=== PATIENT | female | born 1970 | race Caucasian/White ===

== ENCOUNTER 2016-12-02 05:32 | Day surgery (SDC) | payer MEDICAID ==
[2016-12-01 10:37] LABS: HEMATOCRIT 41.5 % (36.0-48.0); MCH 31.6 pg (26.0-34.0); MCHC 33.7 g/dL (31.0-37.0); MCV 93.7 fL (80.0-100.0); MEAN PLATELET VOLUME 9.6 fL (7.4-10.4); RBC 4.43 10x6/uL (4.00-5.40); RDW 12.6 % (11.5-14.5); WBC 6.3 10x3/uL (4.8-10.8)
[2016-12-01 11:06] LABS: CALC OSMOLALITY 276 mosm/kg (275-300); CALCIUM 8.6 mg/dL (8.5-10.1); CARBON DIOXIDE 26.4 mmol/L (21.0-32.0); CHLORIDE - SERUM 104 mmol/L (98-107); CREATININE - SERUM 0.7 mg/dL (0.6-1.3); GLUCOSE 90 mg/dL (74-106); POTASSIUM - SERUM 3.9 mmol/L (3.5-5.1); SODIUM 139 mmol/L (136-145); UREA NITROGEN 10 mg/dL (7-18); eGFR NON AFRICAN AMERICAN > 90 mL/min (90-120)
[~2016-12-02] VITALS: Ht 175.3 cm; Wt 74.8 kg
--- NOTE | ~2016-12-02 | OP ---
PATIENT NAME: HENNA POLANCO MEDICAL RECORD: [id number] :74 LOCATION:D[facility] ADMISSION DATE: SURGEON: JUAN MANUEL BISHOP OPERATION DATE: 12/02/16 DATE OF OPERATION: 12/02/2016 SURGEON: Juan Manuel Bishop DPM. PREOPERATIVE DIAGNOSES: 1. Tailor's bunion, left foot. 2. Neuroma, second intermetatarsal space, right foot. POSTOPERATIVE DIAGNOSES: 1. Tailor's bunion, left foot. 2. Neuroma, second intermetatarsal space, right foot. PROCEDURES: 1. Tailor's bunionectomy (reverse Richard), left foot. 2. Excision of neuroma, second intermetatarsal space, right foot. ANESTHESIA: LMA. HEMOSTASIS: Pneumatic ankle tourniquet on the left lower extremity inflated to 250 mmHg and maintained on the field with the right foot. ESTIMATED BLOOD LOSS: Minimal. MATERIALS: One 2.0 cannulated Lloyd medical screw. INJECTABLES: 20 cc 0.5% bupivacaine plain. The patient has longstanding history of pain with the both above-mentioned foot pathology. We have discussed the proposed procedures. Risks and benefits were reviewed. Her complications were discussed. Her questions were answered. She was appropriately consented for the above-mentioned procedures. The patient was brought in the operating room and placed in the operating table in supine position. A timeout was called with Dr. Bishop, who identified the patient, the surgical sites and the surgeries to be performed. Once appropriate anesthesia was obtained, the feet were prepped and draped in the usual aseptic manner. PROCEDURE NUMBER 1: Tailor's bunionectomy, left foot. The pneumatic ankle tourniquet was inflated to 250 mmHg on the well-padded left ankle. Attention was directed to the lateral aspect of the left foot where a 4-cm linear incision was made directly over the fifth metatarsal head. This incision was carried deep to soft tissue with care being taken to retract all vital neurovascular structures. All bleeders were cauterized along the way. The periosteum was then reflected from the head of the first metatarsal and the base of the fifth proximal phalanx, thus exposing the fifth metatarsophalangeal joint. Utilizing a sagittal saw, hypertrophied lateral eminence was removed from the fifth metatarsal head. Utilizing a sagittal saw, a V-shaped osteotomy was created in the head of the fifth metatarsal. This is a through and through OPERATIVE REPORT [id number] HENNA POLANCO osteotomy with the apex oriented distally. The metatarsal head was translocated medially and impacted upon the fifth metatarsal shaft. Utilizing manufactured recommended technique, one 2.0 x 10 mm cannulated screw was placed across the osteotomy. Solid fixation was obtained via this. Any remaining over hanging bone from the lateral aspect of the fifth metatarsal was then removed with the sagittal saw. Any rough sharp bone edges were then removed with a rasp and rongeur. The surgical site was then irrigated with copious amounts of normal sterile saline via bulb syringe. The periosteum was then reapproximated and coapted utilizing 3-0 Vicryl. The subQ was then reapproximated and coapted using 4-0 Vicryl. The skin was then reapproximated and coapted using 4-0 Prolene. A dressing consisting of Xeroform, 4 x 4's, Kerlix and Coban was applied to the left foot. The pneumatic ankle tourniquet was deflated and capillary refill time is immediate to all digits of the left foot. PROCEDURE NUMBER 2: Excision of neuroma, second intermetatarsal space, right foot. Attention was directed to the dorsal aspect of the right foot where a 4-cm linear incision was made directly over the second intermetatarsal space. This incision was carried deep to soft tissue with care being taken to retract all vital neurovascular structures. All bleeders were cauterized along the way. The deep transverse intermetatarsal ligament was then identified and sharply transected. The neuroma was noted to reside in this area. The neuroma was then dissected proximally into the second intermetatarsal space as far possible and then sharply transected. Dissection was then directed distally into the lateral aspect of the second toe and medial aspect of the third toe, both digital branches were then sharply transected and the specimen was passed from the field and sent to pathology. The surgical site was then investigated for any remaining pathological tissue and none was noted. The surgical site irrigated with copious amounts of normal sterile saline via bulb syringe. The subcutaneous tissues were then reapproximated and coapted using 3-0 Vicryl. The skin was then reapproximated and coapted using 4-0 Prolene. A dressing consisting of Xeroform, 4 x 4's, Kerlix and Coban was applied to the right foot. The patient tolerated both procedures well. She left the operating room with vital signs stable and capillary refill time intact. The patient will be discharged home with instructions to ice and elevate bilateral feet. She was dispensed a boot for the left foot that she is to wear at all times when ambulating. She was dispensed a postop shoe for the right foot that she is to wear at all times when ambulating. We will follow up with her next week. She has my cell phone number for any after difficulties and there were no complications with this procedure. TRANSINT:[id number] Voice Confirmation ID: [id number] DOCUMENT ID: [id number] OPERATIVE REPORT [id number] HENNA POLANCO DAVID J CC: [id number] DICTATION DATE: 12/02/16 1621 SHOE CLEANER: 12/02/16 1814 [facility] 12/02/16 [id number] [place] [address]
[~2016-12-02 05:32] MED LIST: AZULFIDINE500 MG PO; FOLIC ACID1 MG PO; METHOTREXATE2.5 MG PO; PERCOCET 10/3251 TA1 PO; PREDNISONE5 MG PO; ULTRAM50 MG PO
[2016-12-02 11:37] LABS: HCG URINE NEGATIVE (NEGATIVE)
[2016-12-02 11:42] VITALS: BP 96/66; Ht 175.3 cm; Wt 74.8 kg
--- NOTE | 2016-12-02 17:04 | NUR ---
1630 DISCHARGE INSTRUCTIONS GIVEN. PRESCRIPTIONS FOR NORCO, IBUPROFEN AND PHENERGAN GIVEN. ESCORTED OUT ACCOMPANIED BY .
== END 2016-12-02 16:30 | disposition home or self-care (01) ==
LOC: D.OPS 05:32 → D.PAN 12:45 → D.OPS 16:30
PROVIDERS: Anesthesiology; Podiatrist
DX: M21.622 Bunionette of left foot (principal); G57.81 Other specified mononeuropathies of right lower limb; Z01.812 Encounter for preprocedural laboratory examination

== ENCOUNTER → 2017-11-24 12:32 | Outpatient (CLI) | payer MEDICAID ==
[2016-12-02 11:42] VITALS: BMI 24.4
== END | disposition home or self-care (01) ==
LOC: D.NM 11-22 07:15
DX: R10.31 Right lower quadrant pain (principal)

== ENCOUNTER 2018-06-29 09:20 | Day surgery (SDC) | payer MEDICAID ==
[2018-06-28 08:25] LABS: CALC OSMOLALITY 278 mosm/kg (275-300); CALCIUM 8.6 mg/dL (8.5-10.1); CARBON DIOXIDE 26.5 mmol/L (21.0-32.0); CHLORIDE - SERUM 104 mmol/L (98-107); CREATININE - SERUM 0.7 mg/dL (0.6-1.3); GLUCOSE 95 mg/dL (74-106); POTASSIUM - SERUM 3.9 mmol/L (3.5-5.1); SODIUM 140 mmol/L (136-145); UREA NITROGEN 12 mg/dL (7-18); eGFR NON AFRICAN AMERICAN > 90 mL/min (90-120)
[2018-06-28 08:30] LABS: HEMATOCRIT 43.2 % (36.0-48.0); HEMOGLOBIN 14.7 g/dL (12-16); MCH 31.8 pg (26.0-34.0); MCV 93.5 fL (80.0-100.0); MEAN PLATELET VOLUME 9.8 fL (7.4-10.4); RBC 4.62 10x6/uL (4.00-5.40); RDW 12.4 % (11.5-14.5); WBC 7.1 10x3/uL (4.8-10.8)
[~2018-06-29] VITALS: Ht 175.3 cm; Wt 72.6 kg
[~2018-06-29 09:20] MED LIST changes: +ARAVA10 MG PO; +OMEPRAZOLE40 MG PO
[2018-06-29 10:57] VITALS: BP 96/35; Ht 175.3 cm; Wt 72.6 kg
--- NOTE | 2018-07-13 17:49 | OP ---
PATIENT NAME: HENNA POLANCO MEDICAL RECORD: [id number] :74 LOCATION:D[facility] ADMISSION DATE: SURGEON: ASHELY BISHOP DATE OF OPERATION: 06/29/2018 SURGEON: Ashely Bishop DPM PREOPERATIVE DIAGNOSES: 1. Tailor's bunion, right foot. 2. Neuroma, fourth intermetatarsal space, left foot. POSTOPERATIVE DIAGNOSES: 1. Tailor's bunion, right foot. 2. Neuroma, fourth intermetatarsal space, left foot. PROCEDURES: 1. Reverse Richard bunionectomy, fifth metatarsal of right foot. 2. Excision of neuroma, fourth intermetatarsal space, left foot. ANESTHESIA: General. HEMOSTASIS: Pneumatic ankle tourniquet inflated to 250 mmHg. ESTIMATED BLOOD LOSS: Minimal. MATERIALS: One 2.5-mm Dart-Fire screw ([employer]). INJECTABLES: A 20 cc of 0.5% bupivacaine plain preoperatively. The patient has long-standing history of pain associated with a tailor's bunion on the right foot and a neuroma within the left foot. We have reviewed the proposed procedures. Risks and benefits were discussed. Complications were reviewed. All questions were answered. She was appropriately consented for the above-mentioned procedures. DESCRIPTION OF PROCEDURE: The patient was brought in the operating room and placed on the operating table in a supine position. A time-out was called with Dr. Bishop, who identified the patient, the surgical site, and the surgery to be performed. Once appropriate anesthesia was obtained, the foot was prepped and draped in the usual aseptic manner. The pneumatic ankle tourniquet was inflated to 250 mmHg on the well-padded right ankle. Attention was directed to the dorsal aspect of the fifth metatarsophalangeal joint, where a 5-cm linear incision was made. This incision was carried deep to soft tissue with care being taken to retract all vital neurovascular structures. All bleeders were cauterized along the way. The periosteum was then reflected from the head of the fifth metatarsal and the base of the proximal phalanx, thus exposing the fifth metatarsophalangeal joint. The lateral eminence of the fifth metatarsal head was noted to be hypertrophied. Utilizing a sagittal saw, the hypertrophied bone was removed. Next, utilizing a sagittal saw, a V-shaped osteotomy was created in the head of the fifth metatarsal. This was a uaaqigq-[id number]-wfiyfkr osteotomy with the apex OPERATIVE REPORT [id number] SHERRIHENNA J oriented distally. The capital fragment was translocated medially and impacted upon the fifth metatarsal shaft. Utilizing steam drier operator's recommended technique, one 2.5-mm Dart-Fire screw was placed across the osteotomy. Excellent compression was noted with use of the screw. Any remaining overhanging bone from the lateral aspect of the fifth metatarsal shaft was removed with a bone saw. The surgical site was then irrigated with copious amounts of normal sterile saline via bulb syringe. The periosteum was then reapproximated and coapted utilizing 3-0 Vicryl, the subcutaneous was then reapproximated and coapted utilizing 3-0 Vicryl, and the skin was reapproximated and coapted utilizing 4-0 nylon. A dressing consisting of Xeroform, 4 x 4, Kerlix, and an Moose bandage was applied to the right foot. The pneumatic ankle tourniquet was deflated and capillary refill time was immediate to all digits of the right foot. PROCEDURE #2: Excision of neuroma, fourth intermetatarsal space, left foot. Attention was directed to the fourth intermetatarsal space of the left foot, where a 3-cm linear incision was made. This incision was carried deep to soft tissue with care being taken to retract all vital neurovascular structures. All bleeders were cauterized along the way. Incision was carried to the base of the fourth intermetatarsal space. The transverse intermetatarsal ligament was identified and sharply transected. The intermetatarsal nerve was then identified and dissected proximally into the fourth intermetatarsal space and distally into the lateral aspect of the fourth toe and medial aspect of the fifth toe. All branches were then sharply transected with a fresh #15 blade. The neuroma was passed from the field. The surgical site was then irrigated with copious amounts of normal sterile saline via bulb syringe. The surgical site was investigated for any remaining pathological tissue and none was noted. The subcutaneous was reapproximated and coapted utilizing 3-0 Vicryl. The skin was reapproximated and coapted utilizing 4-0 nylon. A dressing consisting of Xeroform, 4 x 4, Kerlix, and Moose bandage was applied to the left foot. The pneumatic ankle tourniquet was deflated and cap refill time was immediate to all toes of the left foot. The patient tolerated the procedure and the anesthesia well. She left the operating room with vital signs stable and capillary refill time intact. The patient was discharged home with instructions to ice and elevate bilateral feet. She has a boot for the right foot and a postop shoe for the left foot. She is to use those to offload her feet while ambulating. She was provided with prescriptions for [place] 7.5/325, ibuprofen 800 mg, and Phenergan 25 mg. She was also provided with my cell phone number for any afterhours difficulties. There were no complications in this case. She will follow up with me next week. TRANSINT:[id number] Voice Confirmation ID: [id number] DOCUMENT ID: [id number] OPERATIVE REPORT [id number] HENNA POLANCO DAVID J at 1749 CC: [id number] DICTATION DATE: 06/29/18 1330 DIRECTOR INFORMATICS: 06/29/18 1432 [facility] 06/29/[address] [facility] [address] [place] [address]
== END 2018-06-29 15:15 | disposition home or self-care (01) ==
LOC: D.OPS 09:20 → D.PAN 11:30 → D.OPS 15:15
PROVIDERS: Anesthesiology
DX: M21.621 Bunionette of right foot (principal); G57.81 Other specified mononeuropathies of right lower limb

== ENCOUNTER → 2018-11-22 10:14 | Outpatient (CLI) | payer MEDICAID ==
[2018-06-29 10:57] VITALS: BMI 23.6
== END | disposition home or self-care (01) ==
LOC: D.RAD 10:14
PROVIDERS: ATTEND Internal Medicine Gastroenterology
DX: R13.10 Dysphagia, unspecified (principal)